=== PATIENT | female | born 1990 | race Caucasian/White ===

== ENCOUNTER 2020-02-26 05:37 | Inpatient (IN) | payer OTHER, MEDICAID, SELFPAY ==
[2020-02-26] VITALS (48 sets, daily range): BP systolic 90–121; BP diastolic 47–73; PULSE 17–91; RESP 12–20; TEMP 36.1–36.9; O2SAT 97–100; BMI 27.8
--- NOTE | 2020-02-26 05:37 | LDADM ---
This patient, Marjorie Hancock, was admitted to Labor/Delivery/Recovery 120 on 02/26/20 at 05:37. Plans for labor, pain management and were discussed with patient. Patient/family oriented to hospital policies and general routines including ID bracelet, bed and alarms, visiting hours, pain management, procedures, bathroom and other care routines, personal items, smoking policy, room service/diet and guest tray routines, security routines, and visiting hours. Patient/Family are encouraged to report perceived risks to care and to ask questions if they do not understand what they are told or what they should do. See OBIX for further documentation.
[2020-02-26] MEDS: LACTATED RINGERS 1,000 ML 125 ML IV CONT ×2 (06:25→07:19)
--- NOTE | 2020-02-26 06:50 | WPDANESEPPF ---
Anes - Initial Pre Proc Eval Procedure: Operation Date: 02/26/20 07:30 Proposed Procedures p Primary Section - Geoffrey Liang MD Date/Time: 02/26/20 06:50 Surgeon: Geoffrey Liang MD Pre Op Diagnosis: section Patient Data Age: 29 Gender: F Height: 5 ft 5 in Weight: 76 kg Last Vital Signs Pulse 85 02/26/20 06:15 BP 121/71 02/26/20 06:15 Allergies Allergy/AdvReac Type Severity Reaction Status Date / Time Penicillins Allergy Severe Dyspnea / Verified 11/13/14 15:42 SOB Home Medications Medication Instructions Recorded Confirmed Type PNV cmb#95-ferrous fumarate-FA 1 tablet PO DAILY 02/02/20 02/02/20 History [] Laboratory Tests 02/26/20 02/26/20 06:13 06:13 WBC Pending RBC Pending Hgb Pending Hct Pending MCV Pending MCH Pending MCHC Pending RDW Pending Plt Count Pending MPV Pending Immature Gran % (Auto) Pending Neut % (Auto) Pending Lymph % (Auto) Pending [place] % (Auto) Pending Eos % (Auto) Pending Baso % (Auto) Pending Lymph # (Auto) Pending [place] # (Auto) Pending Eos # (Auto) Pending Baso # (Auto) Pending Abs Immat Gran (auto) Pending Absolute Neuts (auto) Pending Absolute Nucleated RBC Pending Nucleated RBC % Pending RPR Pending Patient hx anesthesia problems: none Family hx anesthesia problems: none PMFSH Family History Family History Other No pertinent family history Social History Social History Substance use: never Gender identity (if verbalized by the patient): Female Spiritual care concerns: No Anes - Eval Final PreProcedure Day of Procedure 02/26/20 06:50 Patient weight: overweight Heart: regular rate and rhythm Lungs: clear to auscultation Airway: Mallampati scale class 1 Neurological: alert and oriented Last oral intake: >/= 8 hours ASA classification: II Anesthetic plan: proceed Anesthesia type and monitoring: regional spinal and standard monitoring Informed Consent: The patient's anesthetic plan and its attendant risks and benefits were discussed with the patient/family/POA. Questions were solicited and answers provided to the satisfaction of the patient/family/POA.
[2020-02-26 06:51] LABS: Basophils Percent Auto 0.3 % (0.2-1.2); Eosinophils Percent Auto 0.5 % (0-4.4); Hematocrit 34.3 % (37.0-47.0); Hemoglobin 11.2 g/dL (12.0-15.0); Immature Granulocyte Absolute 0.06 K/mm3 (0.00-0.031); Immature Granulocyte Percent A 0.8 % (0-0.5); Lymphocytes Absolute Auto 2.53 K/mm3 (0.9-3.2); Lymphocytes Percent Auto 34.4 % (18.3-44.2); Mean Corpuscular HGB Conc 32.7 g/dl (32-36); Mean Corpuscular Hemoglobin 29.8 pg (26-34); Mean Corpuscular Volume 91.2 fl (80-100); Monocytes Absolute Auto 0.5 K/mm3 (0.1-0.6); Monocytes Percent Auto 6.8 % (2.6-8.5); Neutrophils Absolute Auto 4.2 K/mm3 (1.3-6.7); Neutrophils Percent Auto 57.2 % (45.5-73.1); Platelet Count Result 194 k/mm3 (150-375); Red Blood Count 3.76 M/mm3 (4.2-5.4); Red Cell Distribution Width 12.3 % (11.5-14.5); White Blood Count 7.4 K/mm3 (4.5-10.0)
--- NOTE | 2020-02-26 06:58 | PM.IMHP ---
H&P: HPI History of Present Illness Date/Time: 02/26/20 06:58 Chief complaint: section Narrative: Marjorie Hancock is a 29 year old female Multiparous female at 39 weeks gestation with a previous shoulder dystocia. We have agreed to perform delivery. Has no complaints. She denies any contractions, loss of fluid, vaginal bleeding. She denies any chest pain or shortness of breath. She denies any nausea, vomiting, fever, chills. She reports good movement. Review of Systems Constitutional: Constitutional: Reports no additional constitutional complaints, Denies fatigue, Denies headache(s), Denies lethargy and Denies weakness Eyes: Eyes: Reports no additional eye complaints, Denies blurry vision and Denies photophobia ENT: Reports as per HPI, Denies headache(s) and Denies neck pain Cardiovascular: Cardiovascular: Denies chest pain, Denies diaphoresis, Denies leg edema, Denies palpitations and Denies dyspnea Respiratory: Respiratory: Denies hemoptysis, Denies dyspnea and Denies wheezing Gastrointestinal: Gastrointestinal: Denies abdominal pain, Denies melena, Denies bloating, Denies hematochezia, Denies nausea and Denies vomiting Genitourinary: Genitourinary: Reports no additional female genitourinary complaints Musculoskeletal: Musculoskeletal: Denies joint swelling, Denies neck pain, Denies numbness and Denies stiffness Neurologic: Denies Abnormal speech present, Denies confusion, Denies headache(s), Denies numbness and Denies weakness Psychiatric: Psychiatric: Denies anxiety, Denies confusion, Denies depression, Denies homicidal ideation and Denies suicidal ideation Endocrine: Endocrine: Denies fatigue and Denies palpitations Allergic/Immunologic: Allergic/Immunologic: Denies wheezing [facility] Family History Family History Other No pertinent family history Social History Social History Substance use: never Gender identity (if verbalized by the patient): Female Spiritual care concerns: No Meds Home Medications and Allergies Home Medications Medication Instructions Recorded Confirmed Type PNV cmb#95-ferrous fumarate-FA 1 tablet PO DAILY 02/02/20 02/02/20 History [] Allergies Allergy/AdvReac Type Severity Reaction Status Date / Time Penicillins Allergy Severe Dyspnea / Verified 11/13/14 15:42 SOB Vital Signs Vital Signs - 24 hr 02/26/20 05:59 02/26/20 06:15 02/26/20 06:27 Temperature 97.9 F Pulse Rate 88 85 Blood Pressure 109/71 121/71 Exam Const: General: healthy appearing, comfortable and no acute distress; No confusion Orientation/consciousness: No confusion Eyes: Direct Ophthalmoscopy: No photophobia Resp: Auscultation: clear to auscultation bilaterally, no rales, no rhonchi and no wheezes Cardio: Rate: regular rate Heart sounds: no click, no murmurs and no rubs GI: Inspection: non-distended GI Palp: No abdominal tenderness Auscultation: normal bowel sounds Neuro: General: No confusion Speech: No Abnormal speech present Extrem: General: normal to inspection, no pedal edema and no calf tenderness H&P: Results Labs Labs: Short CBC 02/26/20 Range/Units 06:43 WBC 7.4 (4.5-10.0) K/mm3 Hgb 11.2 L (12.0-15.0) g/dL Hct 34.3 L (37.0-47.0) % Plt Count 194 (150-375) k/mm3 Assessment and Plan Assessment and plan (1) History of shoulder dystocia: Status: Acute (2) Term : Code(s): Z34.90 - Encounter for supervision of normal , unspecified, unspecified trimester Status: Acute Assessment and Plan: this patient is a 29-year-old multiparous female at term. She has history of shoulder dystocia. We are going to perform delivery. She understands the risks, benefits, and alternatives. She has completed the informed consent process is ready to procee
[2020-02-26] MEDS: GENTAMICIN SULFATE INJ 325 MG in DEXTROSE 5% 100 ML 108.1 MG IVPB (07:22)
[2020-02-26] MEDS: ONDANSETRON INJ 4 MG/2 ML VIAL IV PUSH (07:56)
--- NOTE | 2020-02-26 08:25 | PM.PROC ---
Procedure Note - Detailed Date of procedure: 02/26/20 Pre-op diagnosis: section Term gestation, h/o shoulder dystocia Post-op diagnosis: same (macrosomia) Procedure performed: low-transverse delivery Description of procedure: The patient was taken the operating room. She was prepped and draped in the dorsal supine position with leftward tilt after induction of spinal anesthetic. When anesthesia was found to be adequate a low-transverse skin incision was made and carried down to the level the fascia with the knife. The fascial incision was made at the midline with a scalpel. The fascial incision was extended laterally with Barber scissors. The fascia was tented upward superior and inferior with Ana clamps. The rectus muscles were dissected off bluntly. The rectus muscles at the midline. The preperitoneal fat was dissected bluntly at the superior aspect of the separate the rectus muscles. The peritoneal cavity was entered bluntly in the same area. The peritoneal incision was extended superior and inferior with good visualization of bladder. Bladder blade was inserted. A low-transverse incision was made on the uterus with the scalpel. It was carried down the level of the amniotic cavity with a knife. The amniotic cavity bluntly. The uterine incision was made laterally with blunt traction. The infant was delivered. The cord was clamped and cut. The infant was handed off to waiting pediatric staff. Cord bloods were obtained. The placenta was removed manually. The uterus was exteriorized. Uterus cleared of all clots and debris. Uterus closed in 0 Vicryl in a running locked fashion. An imbricating layer of 0 Vicryl was also placed on the to bolster the closure. The uterus was returned to the abdomen. The gutters were cleared of all clots and debris. The fascia was closed 0 Vicryl in a running fashion. Subcutaneous tissue was irrigated and bleeding areas were cauterized. The skin was closed with subcuticular 4O monocryl. The incision was covered with derma blake. The patient tolerated the procedure well. She was taken recovery room stable condition. Sponge, lap, needle counts were correct x2. Anesthesia: spinal Surgeon: Geoffrey Liang MD Estimated blood loss (mL): 240 Drains: No Packing: No Pathology: none sent Complications: No immediate complications Condition: stable Disposition: floor Findings: Normal maternal anatomy. 10# boy with normal Apgars.
[2020-02-26] MEDS: OXYTOCIN 30 UNITS/NS 500 ML 30 UNITS/500 ML BAG 125 UNITS IV CONT (09:26)
--- NOTE | 2020-02-26 10:10 | PC.NURSE ---
Clarified antibiotic orders with Dr. Liang. Order given to administer order Clindamycin NOW.
[2020-02-26] MEDS: fentaNYL CITRATE INJ (*CRX) 100 MCG/2 ML VIAL 25 MCG IV PUSH ×2 (10:17→10:36)
[2020-02-26] MEDS: CLINDAMYCIN 900 MG/NS 50 ML 900 MG/50 ML PIGGYBACK 50 MG IVPB (10:34)
[2020-02-26 10:54] LABS: Rapid Plasma Reagin Non-Reactive (NonReactive)
--- NOTE | 2020-02-26 12:34 | PC.NURSE ---
Patient transferred to post room #292 via stretcher. Support person present. Oriented to unit, room, information board, rooming in, admission packet and security measures. Patient verbalizes understanding.
[2020-02-26] MEDS: KETOROLAC 30 MG/ML VIAL (*BKC) IV PUSH (12:41)
[2020-02-26] MEDS: PROMETHAZINE HCL 25 MG/ML AMPUL 12.5 MG IV PUSH (13:13)
[2020-02-26] MEDS: DEXTROSE 5%/0.45% SOD CHL 1,000 ML 125 ML IV CONT (15:03)
[2020-02-26] MEDS: HYDROcodone/acetaminophen (*CRX) 5-325 MG TABLET 1 TAB PO (20:47)
[2020-02-27] VITALS: BP 100/54; PULSE 72; RESP 16; TEMP 36.9; O2SAT 97
[2020-02-27 03:40] VITALS: BP 109/63; PULSE 75; RESP 18; TEMP 36.8; O2SAT 99
[2020-02-27] MEDS: HYDROcodone/acetaminophen (*CRX) 5-325 MG TABLET 1 TAB PO ×4 (04:36→20:13)
[2020-02-27] MEDS: IBUPROFEN 600 MG TABLET PO ×3 (04:37→18:46)
[2020-02-27 05:57] LABS: Basophils Percent Auto 0.2 % (0.2-1.2); Eosinophils Percent Auto 0.1 % (0-4.4); Hematocrit 30.4 % (37.0-47.0); Hemoglobin 10.1 g/dL (12.0-15.0); Immature Granulocyte Absolute 0.05 K/mm3 (0.00-0.031); Immature Granulocyte Percent A 0.4 % (0-0.5); Lymphocytes Absolute Auto 1.68 K/mm3 (0.9-3.2); Lymphocytes Percent Auto 12.4 % (18.3-44.2); Mean Corpuscular HGB Conc 33.2 g/dl (32-36); Mean Corpuscular Volume 90.2 fl (80-100); Mean Platelet Volume 12.6 fl (7.4-10.4); Monocytes Percent Auto 7.3 % (2.6-8.5); Neutrophils Absolute Auto 10.8 K/mm3 (1.3-6.7); Neutrophils Percent Auto 79.6 % (45.5-73.1); Platelet Count Result 210 k/mm3 (150-375); Red Blood Count 3.37 M/mm3 (4.2-5.4); Red Cell Distribution Width 12.3 % (11.5-14.5); White Blood Count 13.5 K/mm3 (4.5-10.0)
--- NOTE | 2020-02-27 07:32 | P.PNOB_ITS ---
OB - PN: Subj Subjective Date/time seen: 02/27/20 07:32 Patient comments: no complaints baby status: doing well OB - PN: Obj Data Labs CBC & Chem 7: 02/27/20 04:29 Labs: Laboratory Results - last 24 hr 02/26/20 02/26/20 02/27/20 06:13 06:13 04:29 WBC 13.5 H RBC 3.37 L Hgb 10.1 L Hct 30.4 L MCV 90.2 MCH 30.0 MCHC 33.2 RDW 12.3 Plt Count 210 MPV 12.6 H Immature Gran % (Auto) 0.4 Neut % (Auto) 79.6 H Lymph % (Auto) 12.4 L [place] % (Auto) 7.3 Eos % (Auto) 0.1 Baso % (Auto) 0.2 Lymph # (Auto) 1.68 [place] # (Auto) 1.0 H Eos # (Auto) 0.0 Baso # (Auto) 0.0 Abs Immat Gran (auto) 0.05 H Absolute Neuts (auto) 10.8 H Absolute Nucleated RBC 0.0 Nucleated RBC % 0.0 RPR Non-reactive Blood Type O Positive Antibody Screen Negative OB - PN A/P Plan day: 1 Plan: routine care Time Spent With Patient Time: Total time spent is greater than 50% in coordination of care (as documented) at patient's floor/unit and/or counseling patient: Review of Systems Review of Systems: All systems reviewed & are unremarkable except as noted in HPI and below Exam Const: General: cooperative Limitations: no limitations
[2020-02-27] MEDS: MULTIVIT/MIN/PREN/FOL AC/IRON TABLET 1 TAB PO (07:50)
[2020-02-27] MEDS: DOCUSATE SODIUM 100 MG CAPSULE PO (07:50)
--- NOTE | 2020-02-27 07:55 | WPDANLDPN2 ---
Anes-Prog Note L&D Date/Time: 02/27/20 07:55 Comfortable throughout: section Neuraxial method: spinal Epidural/Spinal procedure site: clean & non-tender Neuro status: Neuro function grossly intact. Cardiovascular status: normal Respiratory status: normal Airway patency: baseline Mental status: baseline Post-Op hydration status: normal Vital Signs: Last Vital Signs Temp 36.8 C 02/27/20 03:40 Pulse 75 02/27/20 03:40 Resp 18 02/27/20 03:40 BP 109/63 02/27/20 03:40 Pulse Ox 99 02/27/20 03:40 Pain score (VAS): 05/26 I/O: Intake & Output 02/26/20 02/26/20 02/27/20 15:59 23:59 07:59 Intake Total 213.265 8041 1200 Output Total 382 314 6989 Balance -286.875 825 -2750 Post-procedural complaints: none Patient feedback: Patient satisfied with anesthetic care.
--- NOTE | 2020-02-27 07:55 | WPDANLDNPN2 ---
Anes-Prog Note L&D-Neuraxial Date/Time: 02/27/20 07:55 Neuraxial medications: intrathecal PF morphine Opiod-related complaints: none Patient feedback: Patient satisfied with post-operative pain management.
--- NOTE | 2020-02-27 11:45 | PC.NURSE ---
Upon entering mother has to breast. Mother is able to independently latch infant with appropriate positioning/alignment. She denies any nipple discomfort, is feeding as required and waking infant to feed if needed. Infant was latched correctly. nursed eagerly, with steady draws and frequent swallowing noted. Reviewed signs of a correct latch, effective nursing and suck swallow ratio. was able to maintain latch without discomfort to mother. Nipple care reviewed. Instructed mother to call out for RN assistance if she is unable to latch for feeding or she has discomfort with nursing. Instructed feeding should be initiated three hours from start of last feeding or if feeding cues are noted before. Mother voiced understanding of information shared.
[2020-02-27 18:50] VITALS: BP 113/68; PULSE 77; RESP 14; TEMP 36.7
[2020-02-28] MEDS: IBUPROFEN 600 MG TABLET PO ×2 (04:51→13:34)
[2020-02-28] MEDS: HYDROcodone/acetaminophen (*CRX) 5-325 MG TABLET 1 TAB PO ×3 (04:51→13:35)
--- NOTE | 2020-02-28 07:24 | WPDANLDPN2 ---
Anes-Prog Note L&D Date/Time: 02/28/20 07:24 Comfortable throughout: section Neuraxial method: spinal Epidural/Spinal procedure site: clean & non-tender Neuro status: Neuro function grossly intact. Cardiovascular status: normal Respiratory status: normal Airway patency: baseline Mental status: baseline Post-Op hydration status: normal Vital Signs: Last Vital Signs Temp 36.7 C 02/27/20 18:50 Pulse 77 02/27/20 18:50 Resp 14 02/27/20 18:50 BP 113/68 02/27/20 18:50 Pulse Ox 99 02/27/20 03:40 Pain score (VAS): 0 Post-procedural complaints: none Patient feedback: Patient satisfied with anesthetic care.
--- NOTE | 2020-02-28 07:24 | WPDANLDNPN2 ---
Anes-Prog Note L&D-Neuraxial Date/Time: 02/28/20 07:24 Neuraxial medications: intrathecal PF morphine Opiod-related complaints: none Patient feedback: Patient satisfied with post-operative pain management.
--- NOTE | 2020-02-28 08:10 | PM.OBPNVD ---
OB - PN: Subj Subjective Date/time seen: 02/28/20 08:10 Patient comments: no complaints, pain well controlled, incisional pain, tolerating diet and flatus present OB - PN: Obj Data Labs CBC & Chem 7: 02/27/20 04:29 OB - PN A/P Plan day: 2 Plan: routine care Comments: POD#2 LTCS - no problems, to d/c Time Spent With Patient Time: Total time spent is greater than 50% in coordination of care (as documented) at patient's floor/unit and/or counseling patient: Exam Const: General: comfortable, no acute distress and alert Resp: Effort & Inspection: normal respiratory effort Auscultation: no crackles, no rales and no rhonchi Cardio: Rate: regular rate Heart sounds: no click, no murmurs and no rubs GI: Inspection: non-distended GI Palp: No Tenderness to palpation present (GI) Auscultation: normal bowel sounds Other: Incision - CDI Extrem: General: normal to inspection, no pedal edema and no calf tenderness
--- NOTE | 2020-02-28 08:10 | PM.OBDSVD ---
DS: Admitting Diagnosis Admitting Diagnosis Admitting Diagnosis: section DS: Discharge Diagnosis Discharge Diagnosis (1) History of shoulder dystocia: Status: Acute (2) Term delivered: Code(s): O80 - Encounter for full-term uncomplicated delivery Status: Acute (3) delivery delivered: Code(s): O82 - Encounter for delivery without indication Status: Acute OB - DS: Summary OB Procedures : None OB Procedures Intrapartum: OB Procedures: : None Peripartum Data Delivery Method: Section Procedures: Procedures Operation Date: 02/26/20 07:30 Actual Procedures Side Surgeon p Section Bilateral Geoffrey Liang MD Time Spent with Patient Time attestation: Total time spent providing and/or coordinating discharge services: Discharge Plan Discharge Discharging Clinician: Geoffrey Liang Patient Disposition: Home, Self-Care Activity: pelvic rest Diet: regular Patient Instructions: Antibiotic Form Stand Alone Forms: General Discharge Information Follow-up/Referrals: Geoffrey Liang MD [Physician] - Discharge Medications: New hydrocodone-acetaminophen 5-325 mg tablet 1 - 2 tablet PO Q4H PRN (Reason: pain) Qty: 25 RF: 0 Continued PNV cmb#95-ferrous fumarate-FA [] 28 mg iron- 800 mcg Tablet 1 tablet PO DAILY RF: 0 Date of admission: 02/26/20 05:37 Primary Care Provider: Jesus,[place] Magana Admitting Provider: Geoffrey Liang Attending physician on admission: Geoffrey Liang
[2020-02-28 08:25] VITALS: BP 125/70; PULSE 78; RESP 18; TEMP 36.4; O2SAT 99
--- NOTE | 2020-02-28 10:10 | PC.NURSE ---
Mother is able to independently latch infant with appropriate positioning/alignment. She denies any nipple discomfort, is feeding as required and waking to feed if needed. has had at least 8 effective feedings in the past 24 hours, and is currently meeting outcomes for weight, output, jaundice and feeding frequencies. Mother states she feels confident to continue effective at home. Reviewed transition to breast milk, signs of adequate intake, and engorgement/relief. Instructed to call ICP if intake/output less than required. Reviewed regular medications mother is taking. Information provided per [facility]. Reviewed community resources on the [facility] website and in the Mom/Baby guide. Information on outpatient services provided. Mother has no further questions at this time.
[2020-02-28] MEDS: DOCUSATE SODIUM 100 MG CAPSULE PO (10:18)
[2020-02-28] MEDS: MULTIVIT/MIN/PREN/FOL AC/IRON TABLET 1 TAB PO (10:18)
[2020-02-29 11:28] VITALS: BP 108/62; PULSE 85; RESP 20; O2SAT 99
== END 2020-02-28 14:02 | disposition home or self-care (01) | DRG 788 ==
LOC: ANHLDR 05:47 → ANHOB2 11:41
PROVIDERS: Admitting Provider Obstetrics & Gynecology; PCP Physician Assistant; Visit Provider Obstetrics & Gynecology
PROC: 10D00Z1 Extraction of Products of Conception, Low, Open Approach (ICD-10-PCS; CPT 59514; principal; 2020-02-26 07:30)
DX: O36.63X0 Maternal care for excessive fetal growth, third trimester, not applicable or unspecified (principal); Z3A.39 39 weeks gestation of pregnancy; Z37.0 Single live birth; Z87.59 Personal history of other complications of pregnancy, childbirth and the puerperium
CPT/HCPCS: 36415; 85025; 86592; 86850; 86900; 86901; A9270; J0131; J1580; J1885; J2274; J2405; J2550; J2590; J3010; J7120

== ENCOUNTER → 2021-03-25 03:46 | Outpatient (CLI) | payer OTHER, SELFPAY ==
[2021-03-25 16:54] LABS: SARS-CoV-2 RNA PCR Negative
== END ==
PROVIDERS: PCP Hospitalist; Visit Provider Surgery Plastic and Reconstructive Surgery
DX: Z01.812 Encounter for preprocedural laboratory examination (principal); Z20.822 Contact with and (suspected) exposure to COVID-19
CPT/HCPCS: C9803; U0003; U0005

== ENCOUNTER 2021-03-28 06:02 | Day surgery (SDC) | payer OTHER, SELFPAY ==
[2021-03-07 09:55] VITALS: BMI 22.0
--- NOTE | 2021-03-27 11:46 | WPDANESEPPF ---
Anes - Initial Pre Proc Eval Procedure: Operation Date: 03/28/21 07:30 Proposed Procedures p Bilateral Breast Augmentation Mammoplasty - Jeremy Mckinney MD Date/Time: 03/27/21 11:46 Surgeon: Jeremy Mckinney MD Pre Op Diagnosis: Micromastia Patient Data Age: 30 Gender: F Height: 1.65 m Weight: 60 kg Allergies Allergy/AdvReac Type Severity Reaction Status Date / Time Penicillins Allergy Severe Dyspnea / Verified 11/13/14 15:42 SOB Home Medications Medication Instructions Recorded Confirmed Type albuterol sulfate [Ventolin HFA] 2 puff INHALATION QID PRN 03/07/21 03/07/21 History carisoprodol 350 mg tablet 350 mg PO TID PRN #21 tablet 03/20/21 03/28/21 Rx docusate sodium 100 mg capsule 100 mg PO DAILY #14 cap 03/20/21 03/28/21 Rx ondansetron HCl 4 mg tablet 4 mg PO Q8H #21 tablet 03/20/21 03/28/21 Rx oxycodone-acetaminophen 5 mg-325 1 tablet PO Q6H PRN #15 tablet 03/20/21 03/28/21 Rx mg tablet Patient hx anesthesia problems: post op nausea/vomiting Family hx anesthesia problems: none Results Review: All pre-operative results and documents have been reviewed as part of the pre-operative evaluation. [facility] Past Medical History Medical History (Updated 03/27/21 @ 11:46 by Ethan hCilds DO) Asthma Family History Family History Other No pertinent family history Social History Social History Smoking status: Never smoker Tobacco type: e-cigarettes/vaping Drinks per week: 1 Substance use: never Substance use type: does not use Living arrangements: with family Gender identity (if verbalized by the patient): Female Spiritual care concerns: No Anes - Eval Final PreProcedure Day of Procedure 03/27/21 11:46 Patient weight: normal Heart: regular rate and rhythm Lungs: clear to auscultation and normal air movement Airway: Mallampati scale class 1 Neurological: alert and oriented Last oral intake: >/= 8 hours ASA classification: II Emergent: no Anesthetic plan: proceed Anesthesia type and monitoring: general LMA and standard monitoring Results Review: All pre-operative results and documents have been reviewed as part of the pre-operative evaluation. Informed Consent: The patient's anesthetic plan and its attendant risks and benefits were discussed with the patient/family/POA. Questions were solicited and answers provided to the satisfaction of the patient/family/POA.
[2021-03-28] VITALS (10 sets, daily range): BP systolic 107–119; BP diastolic 55–84; PULSE 61–111; RESP 12–16; TEMP 36.4–36.7; O2SAT 100; BMI 21.2
[2021-03-28] MEDS: SCOPOLAMINE 1.5 MG PATCH TRANSDERM (06:44)
[2021-03-28] MEDS: LACTATED RINGERS 1,000 ML 30 ML IV CONT ×2 (06:44→09:04)
--- NOTE | 2021-03-28 06:48 | WPDHPUPDATE1 ---
History and Physical Update Update Date/Time: 03/28/21 06:48 History and Physical has been reviewed, including an updated exam of the patient. There are NO changes in the patient's condition. Risks, benefits, and alternatives have been discussed and questions answered. Patient agrees to proceed with procedure.
--- NOTE | 2021-03-28 07:06 | P.OP_ITS ---
Procedure Note - Detailed Date of Procedure 03/28/21 Pre-op Diagnosis Micromastia Post-op Diagnosis same Procedure Performed Bilateral Augmentation Mammaplasty Surgeon Jeremy Mckinney MD Anesthesia general Findings Bilateral Dual Plane 1 Augmentation Shabana Anaya SoftTouch 385cc Right - REF# [id number] SN [id number] Left - REF# [id number] SN [id number] Description of Procedure She is here today for bilateral breast augmentation. Previously and again today the risks, benefits, alternatives were discussed in extensive detail. I wanted her to be very realistic about the risks involved as well as expectations. We discussed aftercare and what to monitor for. Made sure answered all of her questions to her satisfaction today and consent was obtained. Marked in the preoperative holding area with their verification. The patient was taken to the operating room placed supine on the operating table. Anesthesia was provided by anesthesiology. A surgical time-out was taken. We cleansed the skin and 1% lidocaine and 0.25% Marcaine with epinephrine was used anesthetize as a field block. She was prepped and draped in a standard sterile fashion. Tegaderm nipple Barnes were placed. A 15 blade used to make an incision along the inframammary fold. Dissection was continued at 45 degree angle until the chest wall as identified. I incised the pectoralis major along its inferior border and completely released the inferior border leaving the medial border intact. I created a subpectoral pocket in the appropriate dimensions based on our preoperative planning for the implant. I then copiously irrigated with saline solution and verified a strict hemosta sis. Next the use a triple antibiotic and Betadine containing solution to irrigate the pocket. I washed my gloves with the triple antibiotic and Betadine solution. We washed the implant immediately upon opening it with this solution and only opened it when we needed it. I used implant funnel and no-touch technique. The implant was introduced into the pocket using the funnel. Having verified p ositioning of the implant this was closed using 2-0 Vicryl followed by 3-0 Monocryl in a running subcuticular 4-0 Monocryl followed by tissue glue. Fluffs, Shahram wrap, and surgical bra were placed. Patient was awoke and taken to PACU without difficulty. All instrument sponge counts were correct at the end of the case. Estimated Blood Loss 20 Drains No Packing No Pathology none sent Complications No immediate complications Condition stable Disposition PACU
[2021-03-28] MEDS: ceFAZolin SODIUM 2 GM/20 ML SW SYRINGE IV PUSH (07:20)
[2021-03-28] MEDS: BUPIVACAINE HCL 0.25% 50 ML VIAL INFILTRATE (08:03)
[2021-03-28] MEDS: LIDO 1%/EPINEPHRINE 1:100,000 20 ML VIAL 40 ML INFILTRATE (08:04)
[2021-03-28] MEDS: fentaNYL CITRATE INJ (*CRX) 100 MCG/2 ML VIAL 25 MCG IV PUSH ×4 (08:44→09:13)
[2021-03-28] MEDS: oxyCODONE HCL (*CRX) 5 MG TAB IR PO (09:43)
--- NOTE | 2021-03-28 11:01 | WPDANESPN ---
Anes - Prog Note Post-Op Date/Time: 03/28/21 10:10 Cardiovascular status: normal Respiratory status: normal Airway patency: baseline Mental status: baseline Post-Op hydration status: normal Vital Signs: Last Vital Signs Temp 36.5 C 03/28/21 09:20 Pulse 63 03/28/21 10:10 Resp 16 03/28/21 10:10 BP 110/76 03/28/21 10:10 Pulse Ox 100 03/28/21 10:10 Pain Score (VAS): 4 I/O: Intake & Output 03/27/21 03/28/21 03/28/21 23:59 07:59 15:59 Intake Total 440 Balance 440 Post-procedural complaints: none Patient Feedback: Patient satisfied with anesthetic care. Other Findings: Patient vital signs back to baseline. Patient denies nausea and vomiting. Patient's pain under control. Patient OK for discharge.
== END 2021-03-28 10:20 | disposition home or self-care (01) ==
PROVIDERS: PCP Hospitalist; Visit Provider Surgery Plastic and Reconstructive Surgery
PROC: (CPT 19325; principal; 2021-03-28 07:30)
DX: N64.82 Hypoplasia of breast (principal)
CPT/HCPCS: 19325

== ENCOUNTER 2024-01-26 12:22 | Emergency (ER) | payer OTHER, SELFPAY ==
--- NOTE | ~2024-01-26 | XR_ITS ---
Clinical Indication: Fever, cough PA and lateral views of the chest: Comparison: None Findings: There are focal airspace disease at the right upper and right lower lobes. Left lung clear. . Cardiomediastinal silhouette is within normal limits. Bones and soft tissues are unremarkable. Impression: Probable multilobar pneumonia in the left upper and lower lobes. Right lung clear. Reviewed, dictated and finalized at location . Impression: Probable multilobar pneumonia in the left upper and lower lobes. Right lung clear.
--- NOTE | 2024-01-26 12:27 | ED.URI ---
HPI - URI/Sore Throat General Chief Complaint: Upper Respiratory Infection Stated Complaint: Headache/Cough/Vomiting Time Seen by Provider: 01/26/24 12:49 Source: patient and RN notes reviewed Mode of arrival: ambulatory Limitations: no limitations History of Present Illness HPI Narrative: 33-year-old female presents with concern for 4 day history of headache, body aches, cough. She reports vomiting yesterday. She reports possible fever. Reports she took Tylenol. Reports her [id number] has similar symptoms and ear infection. MD elicited complaint: cough and other (headache) Related Data Home Medications Medication Instructions Recorded Confirmed albuterol sulfate 90 mcg/actuation 2 puff inhalation QID PRN 03/07/21 03/07/21 aerosol inhaler (Ventolin HFA) Shortness Of Breath escitalopram oxalate 20 mg tablet mg 01/26/24 Allergies Allergy/AdvReac Type Severity Reaction Status Date / Time Penicillins Allergy Severe Dyspnea / Verified 05/14/21 15:01 SOB Review of Systems Review of Systems: CONSTITUTIONAL: Reports malaise, fever. EYES: Denies visual changes, redness, or discharge. ENT: Denies rhinorrhea, congestion, sinus pain, otalgia and sore throat. CARDIOVASCULAR: Denies chest pain, palpitations, or edema. RESPIRATORY: Reports cough. Denies dyspnea. GASTROINTESTINAL: Denies abdominal pain, diarrhea. Reports nausea and vomiting SKIN: Denies rash or itching. MUSCULOSKELETAL: Denies myalgia. NEUROLOGIC: Reports headache. All systems reviewed & are unremarkable except as noted in HPI and below PMFSH Past Medical History Medical History Asthma Family History Family History Other No pertinent family history Social History Social History Smoking status: Never smoker Tobacco type: e-cigarettes/vaping Drinks per week: 1 Substance use: never Substance use type: does not use Living arrangements: with family Gender identity (if verbalized by the patient): Female Spiritual care concerns: No Comments At time of signature, agree with nursing past medical, surgical, social and family history. There is no relevant family history pertinent to the presenting complaint Exam Narrative: GENERAL: Nontoxic-appearing, well-nourished, and in no acute distress. HEAD: Normocephalic EYES: PERRLA, conjunctivae clear ENT: Nares clear. Mucous membranes moist. TM pearly amaya with dull light reflex bilaterally; no tragal tenderness. Oropharynx not erythematous without lesions. Tonsils not enlarged and without exudate, no drooling, no hoarseness, no trismus, uvula midline. NECK: Supple. No lymphadenopathy CHEST: Clear to auscultation, breath sounds equal. No wheezing, rhonchi, rales, or stridor. No respiratory distress, speaks in full sentences. HEART: Regular rate and rhythm. No murmur heard. SKIN: Warm, dry, no rash. NEURO: Alert and oriented x3. PSYCH: Tearful Course Course Emergency Course: Patient is aware of diagnosis, understands and agrees to treatment plan. Anticipatory guidance given. Patient agrees to follow-up as directed and is aware of reasons to seek care at the emergency department. Portions of this record may have been created with voice recognition software Level of Care: Express Care Visit Vital Signs Vital signs: Reviewed. MDM - URI/Sore Throat MDM Narrative Medical decision making narrative: Differential diagnosis considered: Nava virus, strep pharyngitis, allergic rhinitis, upper respiratory tract infection, sinusitis, rhinosinusitis, nasopharyngitis. viral pharyngitis, otitis media, otitis externa, pneumonia, bronchitis, viral cough syndrome, viral syndrome, and influenza. Exam findings show no acute concerns or changes; patient is non-toxic appearing and is in no distress. Patient is a
[2024-01-26 12:28] VITALS: BP 98/58; PULSE 116; RESP 18; TEMP 39.1; O2SAT 97
[2024-01-26 13:06] LABS: EDSTREPNEGPOS1 Negative (Negative)
[2024-01-26 13:16] LABS: EDCOVIDSCREEN Negative (Negative)
== END 2024-01-26 13:54 | disposition home or self-care (01) ==
PROVIDERS: Emergency Provider Nurse Practitioner
DX: J18.9 Pneumonia, unspecified organism (principal); J45.909 Unspecified asthma, uncomplicated; Z20.822 Contact with and (suspected) exposure to COVID-19
CPT/HCPCS: 71046; 87081; 87635; 87880; 99213; G0463

== ENCOUNTER 2024-02-04 09:57 | Emergency (ER) | payer OTHER, SELFPAY ==
--- NOTE | ~2024-02-04 | XR_ITS ---
EXAMINATION: XR chest 2V DATE: 02/04/2024 10:17 INDICATION: Right chest pain. Cough. Pneumonia. TECHNIQUE: Frontal and lateral views of the chest were obtained. COMPARISON: Chest 2 views 01/26/2024 FINDINGS: There are mild airspace opacities in left mid and lower lung zones. No pleural effusion or pneumothorax. The heart size is normal. Pectus excavatum is noted. IMPRESSION: 1. Mild airspace opacities in left mid and lower lung zones with interval improvement, consistent wit h pneumonia. Reviewed, dictated and finalized at location [facility]. IMPRESSION: 1. Mild airspace opacities in left mid and lower lung zones with interval impro vement, consistent with pneumonia.
[2024-02-04 10:05] VITALS: BP 106/68; PULSE 74; RESP 16; TEMP 36.9; O2SAT 100
[2024-02-04 10:08] VITALS: BP 106/68; PULSE 74; RESP 16; TEMP 36.9; O2SAT 100
--- NOTE | 2024-02-04 10:08 | ED.URI ---
HPI - URI/Sore Throat General Chief Complaint: Upper Respiratory Infection Stated Complaint: Right Flank Pain/Cough Time Seen by Provider: 02/04/24 10:34 Source: patient and RN notes reviewed Mode of arrival: ambulatory Limitations: no limitations History of Present Illness HPI Narrative: 33-year-old female presents with concern for ongoing cough and chest discomfort. She was treated for pneumonia 9 days ago. At that time she had general malaise, fever. She reports those symptoms are resolved and she feels much better in that aspect but she continues to have a productive cough and she is having right-sided chest discomfort particularly with coughing. MD elicited complaint: cough and other (Right-sided chest discomfort) Related Data Home Medications Medication Instructions Recorded Confirmed escitalopram oxalate 20 mg tablet 20 mg PO DAILY 01/26/24 02/04/24 Allergies Allergy/AdvReac Type Severity Reaction Status Date / Time Penicillins Allergy Severe Dyspnea / Verified 05/14/21 15:01 SOB Review of Systems Review of Systems: CONSTITUTIONAL: Denies malaise, chills, sweats, or fever. EYES: Denies visual changes, redness, or discharge. ENT: Denies rhinorrhea, congestion, sinus pain, otalgia and sore throat. CARDIOVASCULAR: Denies chest pain, palpitations, or edema. RESPIRATORY: Reports productive cough. Denies dyspnea. GASTROINTESTINAL: Denies abdominal pain, nausea, vomiting, diarrhea SKIN: Denies rash or itching. MUSCULOSKELETAL: Reports right-sided chest wall discomfort NEUROLOGIC: Denies headache. All systems reviewed & are unremarkable except as noted in HPI and below PMFSH Past Medical History Medical History Asthma Family History Family History Other No pertinent family history Social History Social History Smoking status: Never smoker Tobacco type: e-cigarettes/vaping Drinks per week: 1 Substance use: never Substance use type: does not use Living arrangements: with family Gender identity (if verbalized by the patient): Female Spiritual care concerns: No Comments At time of signature, agree with nursing past medical, surgical, social and family history. There is no relevant family history pertinent to the presenting complaint Exam Narrative: GENERAL: Well-appearing, well-nourished, and in no acute distress. HEAD: Normocephalic EYES: PERRLA, conjunctivae clear ENT: Nares clear. Mucous membranes moist. TM pearly amaya with sharp light reflex bilaterally; no tragal tenderness. Oropharynx not erythematous without lesions. Tonsils not enlarged and without exudate, no drooling, no hoarseness, no trismus, uvula midline. NECK: Supple. No lymphadenopathy CHEST: Rhonchi noted on the left, right side Clear to auscultation, breath sounds equal. No wheezing, rales, or stridor. No respiratory distress, speaks in full sentences. HEART: Regular rate and rhythm. No murmur heard. SKIN: Warm, dry, no rash. NEURO: Alert and oriented x3. PSYCH: Normal mood and affect Course Course Emergency Course: Patient is aware of diagnosis, understands and agrees to treatment plan. Anticipatory guidance given. Patient agrees to follow-up as directed and is aware of reasons to seek care at the emergency department. Portions of this record may have been created with voice recognition software Level of Care: Express Care Visit Vital Signs Vital signs: Vital Signs Temperature 98.5 F 02/04/24 10:05 Pulse Rate 74 02/04/24 10:05 Respiratory Rate 16 02/04/24 10:05 Blood Pressure 106/68 02/04/24 10:05 Pulse Oximetry 100 02/04/24 10:05 Oxygen Delivery Room Air 02/04/24 10:05 Temperature 98.5 F 02/04/24 10:05 Pulse Rate 74 02/04/24 10:05 Respiratory Rate 16 02/04/24 10:05 Blood Pressure 106/
== END 2024-02-04 10:47 | disposition home or self-care (01) ==
PROVIDERS: Emergency Provider Nurse Practitioner
DX: J18.9 Pneumonia, unspecified organism (principal); J45.909 Unspecified asthma, uncomplicated
CPT/HCPCS: 71046; 99213; G0463

== ENCOUNTER 2024-02-06 15:10 | Emergency (ER) | payer OTHER, SELFPAY ==
--- NOTE | ~2024-02-06 | CT_ITS ---
EXAMINATION: CTA chest PE protocol DATE: 02/06/2024 18:26 INDICATION: Chest pain TECHNIQUE: Computed tomography angiography (CTA) of the chest was performed with 100 mL Omnipaque-350 intravenous contrast timed to evaluate the pulmonary arteries. Coronal maximum intensity projection 3D-reconstructions were created by the technologist. Automated exposure control and iterative reconst ruction technique were employed. Exam dose: 220.46 mGy-cm total exam DLP. COMPARISON: 02/04/2024 2 view chest FINDINGS: There is diagnostic contrast enhancement of the pulmonary arteries. No evidence of pulmonar y embolism. No thoracic aortic aneurysm or dissection. Normal heart size. There is mild focal patchy tree-in-bud infiltrate in the posterior segment of the left upper lobes an d in the basilar left lower lobe, suggesting left upper and lower lobe mild pneumonia. There is minim al discoid atelectasis at the base of the lingula and left lower lobe. The right lung is clear. No pleural or pericardial effusion. There is prominent pectus excavatum. Bilateral breast implants. IMPRESSION: Mild left upper and lower lobe infiltrates suggesting pneumonia No evidence of pulmonary embolism Pectus excavatum Reviewed, dictated and finalized at [facility]. Reviewed, dictated and finalized at location [facility].
[2024-02-06 15:14] VITALS: BP 121/73; PULSE 96; RESP 16; TEMP 36.5; O2SAT 97
[2024-02-06 16:40] LABS: Basophils Percent Auto 0.2 % (0.2-1.2); Eosinophils Percent Auto 0.2 % (0-4.4); Hematocrit 41.2 % (37.0-47.0); Hemoglobin 13.8 g/dL (12.0-15.0); Immature Granulocyte Absolute 0.07 K/mm3 (0.00-0.031); Immature Granulocyte Percent A 0.6 % (0-0.5); Lymphocytes Absolute Auto 1.33 K/mm3 (0.9-3.2); Lymphocytes Percent Auto 10.8 % (18.3-44.2); Mean Corpuscular HGB Conc 33.5 g/dl (32-36); Mean Corpuscular Hemoglobin 30.9 pg (26-34); Mean Corpuscular Volume 92.4 fl (80-100); Monocytes Absolute Auto 0.6 K/mm3 (0.1-0.6); Monocytes Percent Auto 5.2 % (2.6-8.5); Neutrophils Absolute Auto 10.2 K/mm3 (1.3-6.7); Platelet Count Result 415 k/mm3 (150-375); Red Blood Count 4.46 M/mm3 (4.2-5.4); Red Cell Distribution Width 11.9 % (11.5-14.5); White Blood Count 12.3 K/mm3 (4.5-10.0)
[2024-02-06 16:44] LABS: BEDSIDEPREGUCG Negative (Negative)
[2024-02-06 16:48] LABS: Add Urine Microscopic? YES; Appearance Urine Clear (Clear); Bacteria Urine None Seen /hpf; Bilirubin Urine Negative (Negative); Blood Urine Negative (Negative); Color Urine Yellow (Yellow); Glucose Urine UA Negative (Negative); Ketones Urine Negative (Negative); Leukocyte Esterase Ur Trace LEU/UL (Negative); Nitrate Urine Negative (Negative); Non Pathogenic Casts 0-2; Protein Urine Negative (Negative); RBC Urine 0-2 /hpf (0-2); Specific Grav Ur 1.006 (1.001-1.035); Squamous Epithelial Cell Urine Few /hpf (Few); Urobilinogen Urine 0.2 mg/dL (<2.0); WBC Urine 0-5 /hpf (0-3)
[2024-02-06 16:50] LABS: Alanine Aminotransferase 13 U/L (6-35); Albumin Level 4.8 g/dL (3.5-5.1); Alkaline Phosphatase 49 U/L (38-126); Anion Gap 8 mmol/L (4-12); Aspartate Amino Transferase 23 U/L (14-36); Bilirubin,Total 0.5 mg/dL (0.2-1.3); Blood Urea Nitrogen 14 mg/dL (7-17); Calcium 9.5 mg/dL (8.4-10.2); Carbon Dioxide 28 mmol/L (22-30); Chloride 98 mmol/L (98-107); Estimated CRCL calculation 89 ml/min; Estimated Glomerular Filt Rate > 60; Glucose 87 mg/dL (65-110); Potassium 4.3 mmol/L (3.4-5.0); Sodium 134 mmol/L (137-145)
--- NOTE | 2024-02-06 17:28 | ED.GENADULT ---
HPI - General Adult General Chief complaint: Unspecified Stated complaint: right flank pain Time Seen by Provider: 02/06/24 16:42 History of Present Illness HPI narrative: Patient is a 33-year-old female who presents to the emergency department this afternoon complaining of right-sided rib and thoracic back pain. Patient states that she has been having this pain for the past week and has been seen at the urgent care and was told that she has left-sided pneumonia. Patient states that she was coughing a lot and attributed the right-sided rib pain to musculoskeletal pain from, she was coughing. Patient states she has been taking ibuprofen and Tylenol at home with no relief. She was prescribed a muscle relaxer at the urgent care which has not touched her pain. Denies any fevers or chills at home. Patient states that any movements of her right upper extremity precipitate the pain. No additional symptoms or concerns at this time. Related Data Home Medications Medication Instructions Recorded Confirmed escitalopram oxalate 20 mg tablet 20 mg PO DAILY 01/26/24 02/04/24 Allergies Allergy/AdvReac Type Severity Reaction Status Date / Time Penicillins Allergy Severe Dyspnea / Verified 05/14/21 15:01 SOB Review of Systems Review of Systems: All systems are reviewed and are negative unless stated otherwise in the HPI. [facility] Past Medical History Medical History Asthma Family History Family History Other No pertinent family history Social History Social History Smoking status: Never smoker Tobacco type: e-cigarettes/vaping Drinks per week: 1 Substance use: never Substance use type: does not use Living arrangements: with family Gender identity (if verbalized by the patient): Female Spiritual care concerns: No Exam Narrative: General: Alert, awake, afebrile, in no acute distress. HEENT: PERRL, no rhinorrhea, no post nasal drip, oropharynx clear. Neck: Trachea midline, no JVD, no lymphadenopathy. Cardiovascular: Regular rate and rhythm, no murmurs, rubs or gallops, no peripheral edema. Respiratory: Clear to auscultation bilaterally, no tachypnea, no wheezing, no rhonchi, no rubs, no respiratory distress. Abdomen: Soft, nontender, nondistended, no rebound, no guarding, no peritoneal signs. Musculoskeletal: Reproducible tenderness to palpation over the right-sided lower rib cage, otherwise no joint swelling or deformity, normal muscle tone. Skin: No rashes or petechia, no signs of infection. Psychiatric: Alert and oriented, normal behavior and judgment for situation. Neurological: Alert and oriented to person, place, and time. Follows all commands. No focal deficits, speech is clear and fluent. Course Vital Signs Vital signs: Vital Signs Temperature 97.7 F 02/06/24 15:14 Pulse Rate 96 02/06/24 15:14 Respiratory Rate 16 02/06/24 15:14 Blood Pressure 121/73 02/06/24 15:14 Pulse Oximetry 97 02/06/24 15:14 Temperature 97.7 F 02/06/24 15:14 Pulse Rate 96 02/06/24 15:14 Respiratory Rate 16 02/06/24 15:14 Blood Pressure 121/73 02/06/24 15:14 Pulse Oximetry 97 02/06/24 15:14 Medical Decision Making MDM Narrative Medical decision making narrative: The patient was evaluated by myself in the emergency department. History is obtained from patient who is an independent historian and physical exam was performed. External medical records were reviewed at this time. IV was established and pertinent tests were ordered. Patient was administered 4 mg IV morphine for pain and 4 mg IV Zofran for nausea. Laboratory results obtained revealing no acute process. Urinalysis revealed no evidence of urinary tract infection. Imaging studies obtained included CT chest which was independently inter
[2024-02-06] MEDS: ONDANSETRON INJ 4 MG/2 ML VIAL IV PUSH (17:53)
[2024-02-06] MEDS: MORPHINE SULFATE (*CRX) 4 MG/ML INJ IV PUSH (17:53)
[2024-02-06 18:55] VITALS: BP 114/66; PULSE 66; RESP 19; O2SAT 99
[2024-02-06] MEDS: LIDOCAINE 5% PATCH 1 PATCH TRANSDERM (19:28)
== END 2024-02-06 19:36 | disposition home or self-care (01) ==
PROVIDERS: Emergency Medicine; Emergency Provider Emergency Medicine
DX: J18.9 Pneumonia, unspecified organism (principal); J45.909 Unspecified asthma, uncomplicated; Z79.899 Other long term (current) drug therapy
CPT/HCPCS: 36415; 71275; 80053; 81001; 81025; 85025; 96374; 96375; 99284; A9270; J2270; J2405; Q9967